=== PATIENT | female | born 1965 | race Two or more races ===

== ENCOUNTER 2018-04-01 18:09 | Emergency (ER) | payer MEDICAID, MEDICARE ==
[~2018-04-01] VITALS: Ht 144.8 cm; Wt 69.4 kg
--- NOTE | 2018-04-01 20:00 | NUR ---
PT CAME TO EMERGENCY DEPT. COMPLAINING OF COUGH AND CONGESTION SINCE THAT HAS BEEN GETTING PROGRESSIVELY WORSE. PT AXO4. RESPIRATIONS EVEN AND UNLABORED. PT PUT ON THE MONITOR AND PULSE OX. PENDING EVAL FROM ER .
[2018-04-01] MEDS ORDERED: predniSONE 20 MG TABLET ONE (20:11)
[2018-04-01] MEDS: predniSONE 20 MG TABLET PO ONE (20:15)
[2018-04-01] MEDS: IPRATROPIUM NEB FS 0.5 MG/2.5 ML AMPUL.NEB NEB ONE (20:16)
[2018-04-01] MEDS: ALBUTEROL FS 2.5 MG/3 ML VIAL.NEB NEB ONE (20:16)
[2018-04-01] MEDS ORDERED: IPRATROPIUM NEB FS 0.5 MG/2.5 ML AMPUL.NEB ONE (20:18)
[2018-04-01] MEDS ORDERED: ALBUTEROL FS 2.5 MG/3 ML VIAL.NEB ONE (20:18)
--- NOTE | 2018-04-01 20:23 | NUR ---
RT AT BEDSIDE.
--- NOTE | 2018-04-01 20:25 | NUR ---
XRAY AT BEDSIDE.
[2018-04-01 22:05] VITALS: BP 158/86
== END 2018-04-01 22:05 | disposition home or self-care (01) ==
LOC: ER 18:15
DX: J32.9 Chronic sinusitis, unspecified (principal); J98.01 Acute bronchospasm
CPT/HCPCS: 71045; 94640; 99283; A4606; J7512

== ENCOUNTER 2018-12-27 15:50 | Emergency (ER) | payer MEDICARE, MEDICAID ==
[~2018-12-27] VITALS: Ht 139.7 cm; Wt 70.3 kg
--- NOTE | 2018-12-27 16:22 | NUR ---
"BIB SELF C/O LLQ ABDOMINAL PAIN STARTED YESTERDAY. -N/V,-DIARRhea" pt aaox4, -sob, nad noted, vss ,pending md celaya
--- NOTE | 2018-12-27 16:40 | NUR ---
URINE SPECIMEN COLLECTED AND SENT TO LAB.
[2018-12-27 17:23] LABS: BASOPHILS # (AUTO) 0.1 /CMM (0.0-0.2); BASOPHILS % (AUTO) 0.6 % (0.0-2.0); EOSINOPHILS % (AUTO) 0.3 % (0.0-6.0); HEMATOCRIT 42 % (33-45); HEMOGLOBIN 13.8 g/dL (11.5-14.8); LYMPHOCYTES # (AUTO) 2.5 /CMM (0.8-4.8); LYMPHOCYTES % (AUTO) 17.2 % (20.0-44.0); MEAN CORPUSCULAR HGB CONC 33 g/dl (31.0-36.0); MEAN CORPUSCULAR VOLUME 88 fL (82-100); MONOCYTES # (AUTO) 1.2 /CMM (0.1-1.30); MONOCYTES % (AUTO) 8.4 % (2.0-12.0); NEUTROPHILS # (AUTO) 10.7 /CMM (1.8-8.9); NEUTROPHILS % (AUTO) 73.5 % (43.0-81.0); PLATELET COUNT (AUTO) 261 /CMM (150-450); RED BLOOD CELL COUNT(AUTO) 4.78 MIL/uL (4.0-5.2); WHITE BLOOD COUNT (AUTO) 14.6 K/uL (4.3-11.0)
[2018-12-27 17:27] LABS: APPEARANCE,URINE Slightly Cloudy (CLEAR); BILIRUBIN,URINE Negative (NEGATIVE); BLOOD, URINE Small Ery/uL (NEGATIVE); COLOR,URINE Yellow (YELLOW); KETONES,URINE Negative (NEGATIVE); LEUKOCYTE ESTERASE ,URINE Trace (NEGATIVE); NITRITE, URINE Negative (NEGATIVE); PH,URINE 6.5 (5.0-8.0); PROTEIN,URINE Negative (NEGATIVE); UGLUCOSE Negative (NEGATIVE); UROBILINOGEN,URINE 0.2 EU/dL (0.2)
[2018-12-27 17:35] LABS: CALCIUM, SERUM 9.5 mg/dL (8.5-10.1); CREATININE 0.8 mg/dL (0.6-1.3); POTASSIUM 3.8 mmol/L (3.5-5.1)
[2018-12-27 17:40] LABS: ALBUMIN 3.6 g/dL (3.4-5.0); BACTERIA,URINE None seen /HPF (None Seen); BILIRUBIN,DIRECT 0.2 mg/dL (0.0-0.2); BILIRUBIN,TOTAL 0.9 mg/dL (0.2-1.0); SQUAMOUS EPITHELIAL CELL,UR Few /HPF (None Seen); TOTAL PROTEIN, SERUM 7.9 g/dL (6.4-8.2); WBC,URINE 0-2 /HPF (0-3)
[2018-12-27] MEDS ORDERED: IV NS 0.9% 250 ML IV ONE (17:51)
[2018-12-27] MEDS ORDERED: IOHEXOL-300 100 ML VIAL IV ONE (17:51)
[2018-12-27] MEDS ORDERED: CT SWABBABLE VALVE TRANS SET 1 EA INFUS.SET MC ONE (17:51)
--- NOTE | 2018-12-27 17:54 | NUR ---
PT TAKEN TO CT
--- NOTE | 2018-12-27 18:12 | NUR ---
PT BACK FROM CT
--- NOTE | 2018-12-27 19:06 | NUR ---
REPORT GIVEN TO DERRICK GARCIA FOR GARCÍA.
[2018-12-27 19:48] LABS: THYROID STIMULATING HORMONE 0.388 uIU/mL (0.358-3.74)
--- NOTE | 2018-12-27 20:40 | NUR ---
Patient discharged to home in stable condition. Written and verbal after care instructions given. Patient verbalizes understanding of instruction and RX. IV removed. Catheter intact and site benign. Pressure and 4x4 applied to site. No bleeding noted. PT ambulatory with a steady gait.
[2018-12-27 21:42] VITALS: BP 138/84
== END 2018-12-27 20:45 | disposition home or self-care (01) ==
LOC: ER 17:29
DX: K57.32 Diverticulitis of large intestine without perforation or abscess without bleeding (principal); K58.9 Irritable bowel syndrome, unspecified; E03.9 Hypothyroidism, unspecified; F41.9 Anxiety disorder, unspecified; F32.9 Major depressive disorder, single episode, unspecified; Z90.49 Acquired absence of other specified parts of digestive tract; Z60.2 Problems related to living alone
CPT/HCPCS: 36415; 74177; 80048; 80076; 81001; 83690; 84439; 84443; 85025; 99284; J7050; Q9967; 81000-TC

== ENCOUNTER 2022-04-12 16:53 | Emergency (ER) | payer MEDICARE, OTHER ==
[~2022-04-12] VITALS: Ht 139.7 cm; Wt 68.0 kg
--- NOTE | 2022-04-12 17:10 | NUR ---
TO ER BED 2. BIB FRIEND C/O DIZZINESS X 1 WEEK, SPECIALLY AFTER USING COMPUTER. PT STATES THAT ITS BEEN CONSISTENT AND GETS WORSE WHEN SHE GETS UP SUDDENLY. VITALS ARE WITHIN NORMAL LIMITS. AWAITING MD [place].
[2022-04-12] MEDS ORDERED: MECLIZINE HCL 25 MG TABLET ONE (17:29)
[2022-04-12] MEDS ORDERED: MECLIZINE HCL 12.5 MG TABLET PO ONE (17:30)
[2022-04-12] MEDS ORDERED: MECL-159 PO (17:47)
--- NOTE | 2022-04-12 17:59 | NUR ---
seen and evaluated by dr chavez, medically cleared. Patient discharged to home in stable condition. Written and verbal after care instructions given. Patient verbalizes understanding of instruction.
[2022-04-12 18:00] VITALS: BP 152/76
== END 2022-04-12 18:01 | disposition home or self-care (01) ==
LOC: ER 17:01
DX: R42 Dizziness and giddiness (principal); F41.9 Anxiety disorder, unspecified; F32.A Depression, unspecified; E03.9 Hypothyroidism, unspecified
CPT/HCPCS: 99283; 93005; 82962; J8597

== ENCOUNTER 2023-01-23 15:30 | Emergency (ER) | payer MEDICARE, OTHER ==
[~2023-01-23] VITALS: Ht 152.4 cm; Wt 73.9 kg
[~2023-01-23 15:30] MED LIST: MECL-159 PO
[2023-01-23 16:10] VITALS: BP 165/92; TEMP 98.3
[2023-01-23] MEDS ORDERED: HYDR453.3 TP (16:59)
[2023-01-23] MEDS ORDERED: CAMP85GE TP (16:59)
[2023-01-23 17:12] VITALS: O2SAT 98
== END 2023-01-23 17:18 | disposition home or self-care (01) ==
LOC: ER 15:33
DX: R21 Rash and other nonspecific skin eruption (principal); E03.9 Hypothyroidism, unspecified; F32.A Depression, unspecified; F41.9 Anxiety disorder, unspecified